=== PATIENT | male | born 1970 | race Caucasian/White ===

== ENCOUNTER 2017-10-03 15:03 | Emergency (ER) | payer OTHER ==
[~2017-10-03] VITALS: Ht 210.8 cm; Wt 87.5 kg
[2017-10-03] MEDS ORDERED: KEFLEX500 M1 PO (16:50)
[2017-10-03 17:23] VITALS: BP 138/75
== END 2017-10-03 17:24 | disposition home or self-care (01) ==
LOC: ER 15:03
DX: S51.832A Puncture wound without foreign body of left forearm, initial encounter (principal); X58.XXXA Exposure to other specified factors, initial encounter; Y93.89 Activity, other specified; Y92.89 Other specified places as the place of occurrence of the external cause; Y99.8 Other external cause status

== ENCOUNTER 2017-10-20 16:36 | Emergency (ER) | payer OTHER ==
[~2017-10-20] VITALS: Ht 180.3 cm; Wt 88.5 kg
[~2017-10-20 16:36] MED LIST: KEFLEX500 M1 PO
[2017-10-20] MEDS ORDERED: DOXYCYCLINE 10100 MG PO (19:00)
[2017-10-20 19:04] VITALS: BP 148/78
== END 2017-10-20 19:05 | disposition home or self-care (01) ==
LOC: ER 16:36
DX: L02.414 Cutaneous abscess of left upper limb (principal)